=== PATIENT | male | born 1980 ===

== ENCOUNTER 2019-08-09 14:43 | Inpatient (IN) | payer MEDICAID, SELFPAY ==
--- NOTE | 2019-08-12 05:36 | PM.NPN ---
Subjective NPU Subjective: Interval history: Harvey presents today reporting that he and Dr. Nina were able to identify the medications that he had been on that would be helpful. They have him back on Wellbutrin SR 100 mg twice a day and 400 mg of Seroquel at night. He reports that it seems to be helping to get things back on track. He endorses his great concern is that he lives close to [place] and he does not know how he is going to get there. He reports that he knew that he needed to get his medication restarted but now that they are restarted, and he is starting to readjust to them, he is anxious that he is not going to be able to get home or have a reasonable option, in that regard. He reports that he was having suicidal thoughts but those things are subsiding. So now he just needs to figure how he is going to get back to the resources, or work or something, so that he con continue getting the medication after he gets a supply of thirty days, at discharge. He denied having any issues. We talked about the possibility of increasing the Wellbutrin prior to discharge and he understood and agreed to proceed as is documented in this note. Mental Status Exam MSE Comments: This is a well-nourished, well-developed, white male, with limited dress, grooming, and eye contact, with significant tattooing on all of his exposed skin, including his face and forehead, etc. No abnormal movements, except for mild psychomotor agitation. Cooperative with exam in no acute distress. Speech was normal rate and volume, with significant slang and street lingo. Mood described as ?anxious but getting better?; affect congruent. Thought process, organized. Thought content: patient denied any suicidal or homicidal ideation, there were no delusions reported or noted, patient denied any auditory or visual hallucinations. Attention, concentration, and memory appeared intact but were not formally tested. Alert and oriented times three. Insight and judgment are limited but improving. Vitals/I&O/Wt Last Vital Signs Temp 98.4 F 08/12/19 19:58 Pulse 87 08/12/19 19:58 Resp 21 H 08/12/19 19:58 BP 153/79 08/12/19 19:58 Pulse Ox 99 08/12/19 19:58 Weight last 48 hrs Weight 77.111 kg A&P Additional A&P Information Additional A&P Information: This is a 39 year old, male, with schizoaffective disorder, bipolar type, who presents at the hospital with some psychosis, but improvement in his symptoms with the initiation of his medication, who is hopeful to get a starter pack, so to speak, of his medication, and assistance getting back to his area and referrals to someone who could either help him get Medicaid back on track, or get some kind of resources so that this does not happen again. RECOMMENDATION AND PLAN: Continue current medication. Will plan to increase the Wellbutrin to 150 mg twice a day, before discharge. Encourage individual, group, and milieu therapy. Continue q 15 minute checks for safety. Work with social work to establish a means by which he can get back to his own community and resources, while he is trying to get Medicaid on track. Involuntary Hold Information 96 Hour Hold: 96 Hour Involuntary Admission: No Attestations NPU Medical Necessity Statement*: Inpatient hospitalization is medically necessary and the clinically appropriate intervention at this time. We will continue current medications and titrate to effect. Likely length of stay is one to two days. Coding Level of Care Code Acute [employer] Director for Richard Curry
[2019-08-12 06:00] VITALS: BP 94/54; PULSE 84; RESP 17; TEMP 36.5; O2SAT 97
[2019-08-12] MEDS: buPROPion SR (12 HR) 100 mg Tablet PO ×2 (10:22→17:18)
[2019-08-12 14:00] VITALS: BP 114/68; PULSE 102; RESP 20; TEMP 36.9; O2SAT 97
[2019-08-12] MEDS: LORazepam 1 mg Tablet PO ×2 (14:59→21:32)
--- NOTE | 2019-08-12 14:59 | PC.NURSE ---
PT.NOTE: PRN aTIVAN 1MG GIVEN FOR MODERATE ANXIETY.
--- NOTE | 2019-08-12 15:34 | PC.NURSE ---
PT NOTE: PT REPORTS DECREASED ANXIETY SINCE HAVING ATIVAN 1MG.
[2019-08-12 19:58] VITALS: BP 153/79; PULSE 87; RESP 21; TEMP 36.9; O2SAT 99
--- NOTE | 2019-08-12 21:35 | PC.NURSE ---
PT UP TO DESK STATING THAT HE WAS FEELING SUICIDAL. PT STATED HE WAS GOING TO TAKE A NOSEDIVE OFF HIS BED. NOTED TO BE SLIGHTLY AGITATED AND RESTLESS. CONTINUED TO REQUEST 1;1. PT MOVED TO BENCH BY NURSES DESK IN FULL SIGHT OF STAFF. MEDICATED WITH 1 MG ATIVAN PO FOR AGITATION. ADMITTED TO HEARING VOICES BUT DID NOT ELABORATE FURTHER. WILL CONTINUE TO MONITOR.
--- NOTE | 2019-08-12 22:05 | PC.NURSE ---
PT STATING THAT HE IS FEELING MUCH CALMER NOW. HAS RETURNED TO HIS ROOM AND DENYING SI OR PLAN. WILL CONTINUE TO MONITOR.
[2019-08-13 06:00] VITALS: BP 123/74; PULSE 78; RESP 18; TEMP 36.9; O2SAT 96
[2019-08-13] MEDS: buPROPion SR (12 HR) 100 mg Tablet PO (08:33)
[2019-08-13 12:44] VITALS: BP 123/74; PULSE 78; RESP 18; TEMP 36.9; O2SAT 96
--- NOTE | 2019-08-13 12:54 | P.DS_ITS ---
Diagnoses at Discharge Discharge Diagnosis (1) Schizoaffective disorder, bipolar type: Status: Acute Reason for Visit Reason for Visit: Reason For Visit: Psychosis Hospital Course Hospital Course History of Present Illness Date of Service: Aug 10, 2019 Chief Complaint: History of schizoaffective disorder, bipolar type. Depressive episode with suicidal ideation, requesting hospitalization. HPI: This is a 39-year-old male with a diagnosis of schizoaffective disorder, bipolar type who had no ride to a clinic where he had been receiving his medications. He had been on quetiapine 400 mg daily at bedtime and bupropion SR 100 mg twice a day. As time went on he began to develop symptoms, with ideas of reference, yelling at the TV, which disturbed his . He got so depressed that he became suicidal because she was wanting to leave and he went to the local hospital, which transferred here as they had no psychiatry beds. Allergies: Coded Allergies: NO KNOWN ALLERGIES (Unverified , 08/09/19) Active Meds: Current Hospital Medications: Medications (Trade) Dose Ordered Sig/Paula Route PRN Reason Start Time Stop Time Status Last Admin Dose Admin Lorazepam (Ativan Tab) 0.5 mg Q4H PRN PO FOR MILD ANXIETY 08/09/19 23:30 Lorazepam (Ativan Tab) 1 mg Q4H PRN PO FOR MODERATE ANXIETY 08/09/19 23:30 Lorazepam (Ativan Tab) 2 mg Q4H PRN PO FOR SEVERE ANXIETY 08/09/19 23:30 Lorazepam (Ativan Inj) 2 mg Q4H PRN IM For Severe Aggression 08/09/19 23:30 Haloperidol Lactate (Haldol Inj) 5 mg Q4H PRN IM Severe Aggression 08/09/19 23:30 Diphenhydramine HCl (Benadryl Inj) 50 mg ONCE PRN IV Severe Extrapyramidal Symptoms 08/09/19 23:30 Benztropine Mesylate (Cogentin Tab) 1 mg BID PRN PO Mild Extrapyramidal symptoms 08/09/19 23:30 Benztropine Mesylate (Cogentin Inj) 1 mg ONCE PRN IM Severe Extrapyramidal Symptom 08/09/19 23:30 Acetaminophen (Tylenol Tab) 650 mg Q4H PRN PO FOR MILD PAIN 08/09/19 23:30 Trazodone HCl (Trazodone) 50 mg BEDTIME PRN PO FOR SLEEP 08/09/19 23:30 08/09/19 23:44 Nicotine (Nicoderm Patch) 21 mg DAILY PRN TD withdrawal 08/09/19 23:30 Nicotine Polacrilex (Nicotine Gum) 2 mg Q2H PRN PO FOR WITHDRAWAL 08/09/19 23:30 08/09/19 23:44 Haloperidol (Haldol Tab) 5 mg Q4H PRN PO FOR AGITATION 08/09/19 23:30 Lorazepam (Ativan Tab) 2 mg Q4H PRN PO For Agitation 08/09/19 23:30 Home Meds: See HPI. Past Medical History Past Medical History: The patient had a hernia repair. Smoke: Reports: Current (1 pack a day) Occupation: Reports: Disabled Alcohol: Reports: None Drugs: Reports: Former (the patient's drug screen is squeaky clean) Marital Status: Reports: Lives: Reports: With Family Review of Systems Constitutional: Complains of: No constitutional symptoms Eyes: Complains of: No eye symptoms ENT/Mouth: Complains of: No ENTM symptoms Cardiovascular: Complains of: No cardiac symptoms Respiratory: Complains of: No respiratory symptoms GI: Complains of: No GI symptoms Neuro: Complains of: No neuro symptoms Musculoskeletal: Complains of: No musculoskeletal symptoms Skin: Complains of: No skin symptoms Hematologic/Lymphatic: Complains of: No hematologic/lymphatic symptoms Endocrine: Complains of: No endocrine symptoms : Complains of: No symptoms Psych: Complains of: Depression, Suicide ideation, Psychosis Other Review of Systems: Positive for agitation, dysphoric mood. Sleep disturbance and suicidal ideation. Physical Exam Vital Signs: Vital Signs: Date Time Temp Pulse Resp B/P (MAP) Pulse Ox O2 Delivery O2 Flow Rate FiO2 08/10/19 06:28 97.2 92 19 110/65 (80) 97 08/09/19 23:27 Room Air Physical Exam: This is a well-developed, muscular male with mcc tats. Head normocephalic and atraumatic. Conjunctiva normal, pupils equal, round, regular and reactive to light. Neck supple. Heart normal sinus rhythm. Chest clear to auscultation. Abdomen soft and nontender. Skin warm and dry. Cranial nerves II through XII intact. No cerebellar, or sensory or motor deficit noted. Psychiatric: The patient is culturally [place]. His gestures movements are those of people. He speaks of dysphoria and ideas of reference with paranoid delusions, which have so disturbed his that it is damaging his marriage. Mood is dysphoric. Affect is appropriate to his mood. Thought processes are integrated free of racing, blocking or looseness of association. Speech is of normal rate and volume, without dysarthria, aprosody or pressure. Cognitive functions are intact as are insight and judgment. The patient denies suicidal or homicidal ideation, plan or intent now that he has settled in here. Harvey presented an emergency room with symptoms of paranoia, dysphoria and suicidal thoughts and was transferred to the neuropsychiatric unit. There his medications which he has not had for some time which were Wellbutrin and Seroquel were restarted and titrated to effect. He had good response to the me dication and endorsed improvement in his symptoms. 1 issue of note during the hospitalization that was problematic is that he was a frequent masturbater. And needed multiple redirections to discontinue that behavior in a public fashion. Prior the hospitalization he had routine laboratory studies which were within normal limits and they were reviewed. He also had a routine general medical examination which was also within normal limits and revealed no significant new processes. At the time of discharge he denied any lethality, his mood had improved, his anxiety was under control and he endorsed a plan to avoid drugs of abuse. He had obtained the maximum benefit from an inpatient hospitalization so he was discharged. Involuntary Hold Information 2 96 Hour Hold: 96 Hour Involuntary Admission: No Mental Status Exam MSE Comments: This is a well-nourished, well-developed, white/ male, with limited dress, grooming, and eye contact, with significant tattooing on all of his exposed skin, including his face and forehead, etc. No abnormal movements, except for mild resolving psychomotor agitation. Cooperative with exam in no acute distress. Speech was normal rate and volume, with significant slang and street lingo. Mood described as better; affect congruent. Thought process, organized. Thought content: patient denied any suicidal or homicidal ideation, there were no delusions reported or noted, patient denied any auditory or visual hallucinations. Attention, concentration, and memory appeared intact but were not formally tested. Alert and oriented times three. Insight and judgment are limited but improving. Discharge Data Vitals: Last Vital Signs Temp 98.5 F 08/13/19 12:44 Pulse 78 08/13/19 12:44 Resp 18 08/13/19 12:44 BP 123/74 08/13/19 12:44 Pulse Ox 96 08/13/19 12:44 Discharge Plan Discharge Patient Disposition: Home, Self-Care Condition: Stable Prescriptions: New Wellbutrin SR 150 mg tablet sustained-release 12 hr 150 mg PO BID Qty: 60 RF: 1 Seroquel 400 mg tablet 400 mg PO BEDTIME Qty: 30 RF: 1 Discharge Orders: Discharge Order (Routine); Ordered 08/13/19 Ordered By: Esdras Riley Referrals: [facility] [Other] (Please go for walk in assessment within 3-5 days of discharge. Walk in assessments are done between 8am-4pm Saturday-Saturday) Discharge Diet: Regular Discharge Activity: Resume usual activity Patient Instructions: Brief Psychotic Disorder (DC) Discharge Date/Time: 08/13/19 13:37 Discharge Attestations NPU Time Spent in Discharge Care*: less than 30 min Coding Level of Care Code Acute Tractor Trailer Driver for [employer] Diagnoses Schizoaffective disorder, bipolar type F25.0
== END 2019-08-13 13:37 | disposition home or self-care (01) | DRG 885 ==
PROVIDERS: PCP Nurse Practitioner; Referring Provider Nurse Practitioner; Visit Provider Psychiatry & Neurology Psychiatry
DX: F25.0 Schizoaffective disorder, bipolar type (principal); R45.851 Suicidal ideations; F17.210 Nicotine dependence, cigarettes, uncomplicated; Z63.0 Problems in relationship with spouse or partner
CPT/HCPCS: 99232